=== PATIENT | male | born 1975 | race Two or more races ===

== ENCOUNTER 2023-11-28 09:26 | Emergency (ER) | payer OTHER ==
[~2023-11-28] VITALS: Ht 167.6 cm; Wt 90.7 kg
[2023-11-28] MEDS ORDERED: METHYLPREDNISOLONE SOD SUCC 125 MG VIAL IV ONE (14:00)
[2023-11-28] MEDS ORDERED: IPRATROPIUM/ALBUTEROL SULFATE 3 ML AMPUL.NEB IH SCH (14:00)
[2023-11-28] MEDS ORDERED: METHYLPREDNISOLONE SOD SUCC 125 MG VIAL ONE (14:03)
[2023-11-28 14:35] LABS: HEMATOCRIT 42.7 % (39.0-48.0); HEMOGLOBIN 14.7 g/dL (13-16.00); MEAN CELL VOLUME 89.4 fL (80.0-100.00); MEAN CORPUSCULAR HEMOGLOBIN 30.8 pg (27.00-32.0); MEAN CORPUSCULAR HGB CONC 34.5 g/dl (32.0-36.0); PLATELET COUNT 241 K/uL (150-450); RED BLOOD COUNT 4.78 M/uL (4.00-6.00); RED CELL DISTRIBUTION WIDTH 13.3 % (11.5-14.5)
[2023-11-28 15:01] LABS: GFR 79.75
[2023-11-28 15:06] LABS: POTASSIUM 3.87 mEq/L (3.5-5.1)
[2023-11-28] MEDS ORDERED: NASAL MIST126 ML NASAL (17:58)
[2023-11-28] MEDS ORDERED: MUCINEX1200 MG PO (17:58)
[2023-11-28] MEDS ORDERED: ALBUTEROL2.5 MG/3 M IH (17:58)
[2023-11-28] MEDS ORDERED: BUDESONIDE0.5 MG/2 M IH (17:58)
== END 2023-11-28 18:45 | disposition home or self-care (01) ==
LOC: ER 09:27
PROVIDERS: General Practice
DX: J45.998 Other asthma (principal); Z20.822 Contact with and (suspected) exposure to COVID-19